=== PATIENT | male | born 1965 | race Two or more races ===

== ENCOUNTER 2021-06-08 08:40 | Outpatient (AMB) | payer BC, SELFPAY ==
[2021-06-08 08:48] VITALS: BP 170/95; PULSE 78; TEMP 36.4; BMI 38.6
--- NOTE | 2021-06-08 08:48 | U.OPVIS1 ---
Intake Vital Signs 06/08/21 08:48 Height 1.68 m Weight 108.579 kg BMI 38.6 BP 170/95 H Blood Pressure Location Left Upper Arm Position Sitting Pulse 78 Pulse Source Monitor Temp 97.5 F Temp Source Temporal Artery Scan Intake Visit Reasons: Uro Uroflow and Bladder Scan Resident Care Manager Required: No Is patient in pain?: No Allergy Allergies No Known Allergies Allergy (Verified 06/08/21 08:49) Office Procedures Uro Bladder Scan and Uro Flow My Supervising Practitioner for this visit is:: Lupis Guevara Bladder Scan and Uro Flow Completed?: Yes Diagnosis: BPH WITH LUTS N40.1 SLOW STREAM R39.12 Uro Level of Care Nursing/Assessment/Reassessment Patient Status: Established Patient Nursing Assessment/Reassessment: Update [facility] data in EMR, Vital Signs and Medication Reconciliation Coordination of Care: Comp Pt/Fam Ed for care Established Patient Point Assignment: 50 Procedure IM Injection: No Transrectal Ultrasound: No
== END 2021-06-08 08:58 | disposition home or self-care (01) ==
LOC: HODURO 08:40
PROVIDERS: PCP Physician Assistant; Visit Provider Urology

== ENCOUNTER → 2024-07-08 | Outpatient (CLI) | payer OTHER, SELFPAY ==
[2024-07-08 12:38] LABS: Prostate Specific Antigen 5.54 ng/mL (0-4.00)
== END | disposition home or self-care (01) ==
LOC: COPL 11:03
PROVIDERS: PCP Physician Assistant; Referring Provider Urology; Visit Provider Urology
DX: N40.1 Benign prostatic hyperplasia with lower urinary tract symptoms (principal)
CPT/HCPCS: 36415; 84153

== ENCOUNTER → 2024-07-15 | Outpatient (BNVA) | payer OTHER, SELFPAY | END | disposition home or self-care (01) | PROVIDERS: PCP Physician Assistant; Referring Provider Physician Assistant; Visit Provider Physician Assistant | DX: N40.0 Benign prostatic hyperplasia without lower urinary tract symptoms (principal); R97.20 Elevated prostate specific antigen [PSA]; I10 Essential (primary) hypertension; I48.91 Unspecified atrial fibrillation; E78.00 Pure hypercholesterolemia, unspecified; Z86.73 Personal history of transient ischemic attack (TIA), and cerebral infarction without residual deficits | CPT/HCPCS: Q3014 ==

== ENCOUNTER 2024-09-17 19:57 | Emergency (ER) | payer OTHER, SELFPAY ==
[2024-09-17 19:58] VITALS: BMI 35.5
[2024-09-17 20:54] VITALS: BP 128/84; PULSE 74; RESP 18; TEMP 37; O2SAT 96
[2024-09-18 00:28] LABS: Collection Type, Urine Catheter; Squamous Epithelial Cell,Urine 0 /hpf (0-5)
[2024-09-18 00:39] LABS: Bilirubin,Urine Negative (Negative); Blood,Urine 3+ (Negative); Glucose, Urine Negative (Negative); Ketones,Urine Negative (Negative); Leukocyte Esterase,Urine Positive (Negative); Nitrite,Urine Positive (Negative); Protein,Urine 2+ (Neg - Trace); RBC,Urine 4627 /hpf (0-3); Specific Gravity,Urine 1.021 (1.001-1.035); Urobilinogen,Urine Negative mg/dL (0.0-1.0); WBC,Urine 378 /hpf (0-5)
[2024-09-18 00:54] LABS: Color,Urine Drk Orange (Lt Yel-Yel)
[2024-09-18 00:55] LABS: Clarity,Urine Turbid (Clear/Hazy)
[2024-09-18] MEDS: cefTRIAXone 1,000 MG, LIDOCAINE 1% 20 ML 2.1 ML IM (02:17)
[2024-09-18 02:28] VITALS: BP 122/76; PULSE 76; RESP 16; TEMP 36.8; O2SAT 98
--- NOTE | 2024-09-18 03:48 | PD.EDMALE ---
ED Male Genitalurinary RME/HPI General Chief complaint: Urogenital-Male Stated complaint: PAINFUL NICOLE PLACEMENT Time Seen by Provider: 09/17/24 21:38 Arrival date/time: 09/17/24 19:57 59M with history of CVA, afib, psych, and HTN presents to ED with pain/irritation from Nicole that was put in a few days due to urinary retention. Patient was at [facility] when this was done. CT was unremarkable according to patient. UA showed some infection and patient was discharged with Keflex, but hasn't picked it up yet. Limitations: no limitations Related Data Home Medications ?Medication ?Instructions ?Recorded ?Confirmed lisinopril 40 mg tablet 40 mg PO QDAY 11/07/17 07/15/24 tamsulosin 0.4 mg capsule 0.4 mg PO QDAY 08/11/21 07/15/24 apixaban 5 mg tablet (Eliquis) 5 mg PO BID 07/16/23 07/15/24 amlodipine 10 mg tablet 5 mg PO Q OTHER DAY 09/12/23 07/15/24 aspirin 81 mg tablet 81 mg PO QDAY 09/12/23 07/15/24 atorvastatin 20 mg tablet 20 mg PO QDAY 09/12/23 07/15/24 bupropion HCl 100 mg tablet,12 hr 100 mg PO QDAY 09/12/23 07/15/24 sustained-release ezetimibe 10 mg tablet 10 mg PO QDAY 09/12/23 07/15/24 lorazepam 0.5 mg tablet 0.5 mg PO QDAY 09/12/23 07/15/24 metoprolol succinate 100 mg 100 mg PO BID 09/12/23 07/15/24 tablet,extended release 24 hr Allergies Allergy/AdvReac Type Severity Reaction Status Date / Time No Known Allergies Allergy Verified 07/15/24 14:37 Review of Systems Review of Systems Systems Reviewed: All systems reviewed, normal except as documented Constitutional Constitutional: Reports system reviewed and no additional complaints, except as documented, Denies fever(s) and Denies headache(s) ENT Ears, Nose, Mouth, and Throat: Denies disequilibrium and Denies headache(s) Cardiovascular Cardiovascular: Reports system reviewed and no additional complaints, except as documented, Denies chest pain and Denies dyspnea Respiratory Respiratory: Reports system reviewed and no additional complaints, except as documented, Denies cough and Denies dyspnea Gastrointestinal Gastrointestinal: Reports system reviewed and no additional complaints, except as documented, Denies abdominal pain, Denies nausea and Denies vomiting Neurologic Neurologic: Reports system reviewed and no additional complaints, except as documented, Denies confusion, Denies disequilibrium and Denies headache(s) Psychiatric Psychiatric: Denies confusion Past Medical History Past Medical History NEUROLOGIC: Positive Neurological Disorders and Cerebrovascular Accident (2018); Negative Seizures CARDIAC: Positive Cardiac Disorders, Atrial Fibrillation, Hypercholesterolemia and Hypertension; Negative Congestive Heart Failure or Valvular Heart Disease RESPIRATORY: Negative Chronic Obstructive Pulmonary Disease (COPD), Asthma or Sleep Apnea GASTROINTESTINAL: Positive Obesity; Negative Gastrointestinal Disorders, Gastrointestinal Bleed, Ulcer or Gastroesophageal Reflux Disease GENITOURINARY: Positive Benign Prostatic Hyperplasia; Negative Genitourinary Disorders or Renal Disease MUSCULOSKELETAL: Negative Musculoskeletal Disorders or Fractures ENT: Positive Cataracts (left eye); Negative Glaucoma ENDOCRINE: Negative Endocrine Disorders, Diabetes Mellitus Type 1, Diabetes Mellitus Type 2, Hyperthyroidism or Hypothyroidism HEMATOLOGIC: Negative Blood Disorders, Anemia, Sickle Cell Disease or Clotting Problems PSYCHO/SOCIAL: Positive Depression and Anxiety OTHER HISTORY: Negative Hospitalization, Falls, Blood Transfusions, Anesthesia Reactions or Cancer Surgical History SURGICAL: Negative Cardiac Surgery, Pacemaker or Ear Surgery Social History SMOKING STATUS: Never smoker SUBSTANCE USE: does not use ED Exam General Limitations: Present no limitations General appearance: Present alert and in no apparent distress Head Head exam: Present atraumatic Eye Eye exam: Present normal appearance, PERRL and EOMI ENT ENT exam: Present normal exam, normal oropharynx and mucous membranes moist Neck Neck exam: Present normal inspection, full ROM and trachea midline Chest Chest inspection: Present normal inspection and symmetric chest wall rise Respiratory Respiratory exam: Present normal lung sounds bilaterally Cardiovascular Cardiovascular exam: Present regular rate, normal rhythm and normal heart sounds Abdominal Exam Abdominal exam: Present soft and normal bowel sounds Extremities Exam Extremities exam: Present normal inspection and full ROM Back Exam Back exam: Present normal inspection and full ROM Neurological Exam Neurological exam: Present alert, oriented X3 and CN II-XII intact Psychiatric Psychiatric exam: Present normal affect and normal mood Skin Skin exam: Present warm, dry, intact and normal color Course Quality Measures none Orders Category Date Time Status Nicole to Leg Bag Routine Care 09/17/24 23:09 Ordered In and Out Catheter X1 Care 09/17/24 23:09 Completed Urinalysis Stat Lab 09/18/24 00:18 Completed Urine Culture Stat Lab 09/18/24 00:18 Received cefTRIAXone [Rocephin] 1,000 mg Med 09/18/24 02:07 Discontinued Lidocaine 1% 20 ml [Xylocaine 1% 20 ML] 2.1 ml IM X1 Vital Signs Vital signs: Vital Signs Temperature 98.6 F 09/17/24 20:54 Pulse Rate 74 09/17/24 20:54 Respiratory Rate 18 09/17/24 20:54 Blood Pressure 128/84 09/17/24 20:54 Pulse Oximetry (%) 96 09/17/24 20:54 Oxygen Delivery Method Room Air 09/17/24 20:54 O2 at 96% on RA and WNLs Urogenital - Male MDM Narrative MDM Narrative:: 59M with history of CVA, afib, psych, and HTN presents to ED with pain/irritation from Nicole that was put in a few days due to urinary retention. Patient was at [facility] when this was done. CT was unremarkable according to patient. UA showed some infection and patient was discharged with Keflex, but hasn't picked it up yet. Physical exam reveals well-appearing male. Patient is afebrile, calm, and alert. Nicole was removed. Void trial was successful, though with some difficulty. Patient would prefer not to have a Nicole replaced. Patient has upcoming urology appt. UA showed blood and WBCs, likely from Nicole placement, but will give IM Rocephin to reinforce the Keflexd patient was prescribed. Patient states he will pickle cutter ABX in the morning. Patient data External records reviewed:: [facility] previous records Clinical information provided by:: patient Social determinants that could affect healthcare access:: mental health Patient has the following chronic illnesses:: CVA, afib, psych, and HTN How is presenting disease/condition affected by chronic disease/condition?: exacerbated by Evaluation data The following diagnostics were reviewed and interpreted by me:: lab results Lab and/or radiology exams considered but not ordered:: ordered Interpretation Summary: above Medications / Prescriptions Medications or Prescriptions considered but not ordered:: ordered Medication administrations:: Medication Administration History Discontinued Medications Ceftriaxone Sodium 1,000 mg/ (Lidocaine HCl 2.1 ml) 0 mg IM X1 ONE Stop: 09/18/24 02:08 Last Admin: 09/18/24 02:17 Dose: 1,000 mg Documented By: CB above Consultations Consultation(s) initiated? (list below): No Diagnosis Urogenital Male Differential Diagnosis: urinary tract infection, priapism, urethritis, epididymitis, genital herpes simplex, prostatitis, acute retention of urine, inguinal hernia and other (Nicole removal) Most likely diagnosis given after review of the tests above:: Nicole removal and UTI Admission Indicated Admission indicated?: not indicated Admission Request Was there a request for admission?: No Disposition Plan Disposition Plan: Discharge Discharge Attestation Discharge Attestation: The patient and all family members were given an opportunity to ask questions and understood the discharge instructions. Discharge instructions specifically effects, indications for sooner follow up or return to the emergency department, and the expected course of current diagnosis. Patient condition: Stable Discharge Plan Plan Patient Disposition: HOME (Self Care) Discharge Disposition comment: Stable Prescriptions/Referrals Prescriptions/Med Rec: No Action tamsulosin 0.4 mg capsule 0.4 mg PO QDAY Eliquis 5 mg tablet 5 mg PO BID lisinopril 40 mg Tablet 40 mg PO QDAY atorvastatin 20 mg Tablet 20 mg PO QDAY metoprolol succinate 100 mg Tablet Extended Release 24 Hr 100 mg PO BID bupropion HCl 100 mg Tablet Sustained-Release 12 Hr 100 mg PO QDAY lorazepam 0.5 mg Tablet 0.5 mg PO QDAY amlodipine 10 mg Tablet 5 mg PO Q OTHER DAY aspirin 81 mg Tablet 81 mg PO QDAY ezetimibe 10 mg Tablet 10 mg PO QDAY Referrals: Nuvia Gutierrez PA-C [Primary Care Provider] - In 1 week Problem List Clinical Impression: Urinary tract infection, Encounter for Nicole catheter removal Patient/Caregiver Discharge Instructions Education Materials: ED Hematuria Additional Instructions: Please follow-up with PCP within 24-48 hours and return immediately if symptoms worsen. Make sure to pickle cutter ABX from pharmacy. Print Language: Kyrgyz Stand Alone Forms: Patient Portal Info Letter BRANDON/CAMILLA Supervising Physician BRANDON/CAMILLA Supervising Physician: Dr. Rivera
== END 2024-09-18 02:30 | disposition home or self-care (01) ==
PROVIDERS: Physician Assistant; Emergency Provider Emergency Medicine; PCP Physician Assistant
DX: Z46.6 Encounter for fitting and adjustment of urinary device (principal); N39.0 Urinary tract infection, site not specified; N40.1 Benign prostatic hyperplasia with lower urinary tract symptoms; R33.8 Other retention of urine
CPT/HCPCS: 81001; 87077; 87086; 87186; 96372; 99283; J0696; J3490

== ENCOUNTER 2024-09-18 07:09 | Emergency (ER) | payer OTHER, SELFPAY ==
[2024-09-18 07:10] VITALS: BMI 35.5
[2024-09-18 07:18] VITALS: BP 143/91; PULSE 77; RESP 18; TEMP 36.6; O2SAT 98; BMI 34.9
--- NOTE | 2024-09-18 07:29 | PD.EDMALE ---
ED Male Genitalurinary RME/HPI General Chief complaint: Urogenital-Male Stated complaint: UNABLE TO VOID, CATHETER REMOVED AT 0100 TODAY Time Seen by Provider: 09/18/24 07:15 Source: patient Arrival date/time: 09/18/24 07:09 59-year-old male with a history of hypertension, hyperlipidemia, BPH, presents to the emergency room with a chief complaint of urinary retention. Patient states he was seen here last night and had his catheter removed. Mode of arrival: ambulatory Limitations: no limitations Related Data Home Medications ?Medication ?Instructions ?Recorded ?Confirmed lisinopril 40 mg tablet 40 mg PO QDAY 11/07/17 07/15/24 tamsulosin 0.4 mg capsule 0.4 mg PO QDAY 08/11/21 07/15/24 apixaban 5 mg tablet (Eliquis) 5 mg PO BID 07/16/23 07/15/24 amlodipine 10 mg tablet 5 mg PO Q OTHER DAY 09/12/23 07/15/24 aspirin 81 mg tablet 81 mg PO QDAY 09/12/23 07/15/24 atorvastatin 20 mg tablet 20 mg PO QDAY 09/12/23 07/15/24 bupropion HCl 100 mg tablet,12 hr 100 mg PO QDAY 09/12/23 07/15/24 sustained-release ezetimibe 10 mg tablet 10 mg PO QDAY 09/12/23 07/15/24 lorazepam 0.5 mg tablet 0.5 mg PO QDAY 09/12/23 07/15/24 metoprolol succinate 100 mg 100 mg PO BID 09/12/23 07/15/24 tablet,extended release 24 hr Allergies Allergy/AdvReac Type Severity Reaction Status Date / Time No Known Allergies Allergy Verified 09/18/24 07:11 Review of Systems Review of Systems Systems Reviewed: All systems reviewed, normal except as documented Constitutional Constitutional: Reports system reviewed and no additional complaints, except as documented, Denies fatigue, Denies fever(s), Denies headache(s) and Denies weakness Eyes Eyes: Reports system reviewed and no additional complaints, except as documented, Denies blurry vision and Denies change in vision ENT Ears, Nose, Mouth, and Throat: Reports system reviewed and no additional complaints, except as documented, Denies otalgia, Denies headache(s), Denies nasal congestion, Denies throat swelling and Denies vertigo Cardiovascular Cardiovascular: Reports system reviewed and no additional complaints, except as documented, Denies chest pain, Denies dyspnea and Denies dyspnea on exertion Respiratory Respiratory: Reports system reviewed and no additional complaints, except as documented, Denies chest congestion, Denies cough, Denies dyspnea, Denies dyspnea on exertion and Denies wheezing Gastrointestinal Gastrointestinal: Reports system reviewed and no additional complaints, except as documented, Denies abdominal pain, Denies cramping, Denies nausea and Denies vomiting Genitourinary Genitourinary: Reports system reviewed and no additional complaints, except as documented, Denies dysuria, Denies hematuria and Reports oliguria Musculoskeletal Musculoskeletal: Reports system reviewed and no additional complaints, except as documented and Denies back pain Integumentary/Breasts Skin/Breast: Reports system reviewed and no additional complaints, except as documented and Denies wounds Neurologic Neurologic: Reports system reviewed and no additional complaints, except as documented, Denies confusion, Denies headache(s), Denies lack of coordination, Denies vertigo and Denies weakness Psychiatric Psychiatric: Reports system reviewed and no additional complaints, except as documented, Denies anxiety, Denies confusion, Denies depression, Denies paranoia, Denies suicidal ideation and Denies tactile hallucinations Endocrine Endocrine: Reports system reviewed and no additional complaints, except as documented and Denies fatigue Hematologic/Lymphatic Hematologic/Lymphatic: Reports system reviewed and no additional complaints, except as documented and Denies lymphadenopathy Allergic/Immunologic Allergic/Immunologic: Reports system reviewed and no additional complaints, except as documented, Denies throat swelling, Denies urticaria and Denies wheezing Past Medical History Past Medical History NEUROLOGIC: Positive Neurological Disorders and Cerebrovascular Accident (2018); Negative Seizures CARDIAC: Positive Cardiac Disorders, Atrial Fibrillation, Hypercholesterolemia and Hypertension; Negative Congestive Heart Failure or Valvular Heart Disease RESPIRATORY: Negative Chronic Obstructive Pulmonary Disease (COPD), Asthma or Sleep Apnea GASTROINTESTINAL: Positive Obesity; Negative Gastrointestinal Disorders, Gastrointestinal Bleed, Ulcer or Gastroesophageal Reflux Disease GENITOURINARY: Positive Benign Prostatic Hyperplasia; Negative Genitourinary Disorders or Renal Disease MUSCULOSKELETAL: Negative Musculoskeletal Disorders or Fractures ENT: Positive Cataracts (left eye); Negative Glaucoma ENDOCRINE: Negative Endocrine Disorders, Diabetes Mellitus Type 1, Diabetes Mellitus Type 2, Hyperthyroidism or Hypothyroidism HEMATOLOGIC: Negative Blood Disorders, Anemia, Sickle Cell Disease or Clotting Problems PSYCHO/SOCIAL: Positive Depression and Anxiety OTHER HISTORY: Negative Hospitalization, Falls, Blood Transfusions, Anesthesia Reactions or Cancer Surgical History SURGICAL: Negative Cardiac Surgery, Pacemaker or Ear Surgery Social History SMOKING STATUS: Never smoker SUBSTANCE USE: does not use ED Exam General Limitations: Present no limitations General appearance: Present alert and in no apparent distress Head Head exam: Present atraumatic Eye Eye exam: Present normal appearance, PERRL and EOMI ENT ENT exam: Present normal exam, normal oropharynx and mucous membranes moist Neck Neck exam: Present normal inspection, full ROM and trachea midline Chest Chest inspection: Present normal inspection and symmetric chest wall rise Respiratory Respiratory exam: Present normal lung sounds bilaterally Cardiovascular Cardiovascular exam: Present regular rate, normal rhythm and normal heart sounds Abdominal Exam Abdominal exam: Present soft and normal bowel sounds Extremities Exam Extremities exam: Present normal inspection and full ROM Back Exam Back exam: Present normal inspection and full ROM Neurological Exam Neurological exam: Present alert, oriented X3 and CN II-XII intact Psychiatric Psychiatric exam: Present normal affect and normal mood Skin Skin exam: Present warm, dry, intact and normal color Course Quality Measures none Orders Category Date Time Status Philippe [Urinary Catheter] QS Care 09/18/24 07:27 Active Philippe to Leg Bag Routine Care 09/18/24 07:27 Ordered Vital Signs Vital signs: Vital Signs Temperature 97.9 F 09/18/24 07:18 Pulse Rate 77 09/18/24 07:18 Respiratory Rate 18 09/18/24 07:18 Blood Pressure 143/91 H 09/18/24 07:18 Pulse Oximetry (%) 98 09/18/24 07:18 Oxygen Delivery Method Room Air 09/18/24 07:18 Urogenital - Male MDM Narrative MDM Narrative:: 59-year-old male with a history of hypertension, hyperlipidemia, BPH, presents to the emergency room with a chief complaint of urinary retention. Patient states he was seen here last night and had his catheter removed. Patient is hemodynamically stable and in no apparent distress. Patient was seen here last night and had his Philippe catheter removed. The patient was able to urinate after discharged and decided to not get another Philippe catheter placed. This morning the patient noticed a decreased urine output and dribbling when he was urinating. This progressed throughout the day causing abdominal distention and pain. Patient states he has a appointment with his urologist this upcoming Sunday for his problems with his enlarged prostate. A Philippe catheter was placed then the patient was discharged patient was educated to keep the Philippe catheter in place and to be seen and cleared by his urologist Patient was discharged and educated to follow-up with primary care provider in the next 24 to 48 hours and return to the emergency room for any evidence of worsening signs or symptoms Patient data External records reviewed:: [facility] previous records Clinical information provided by:: patient Social determinants that could affect healthcare access:: none Patient has the following chronic illnesses:: BPH, hypertension, hyperlipidemia How is presenting disease/condition affected by chronic disease/condition?: caused by Evaluation data The following diagnostics were reviewed and interpreted by me:: lab results and radiology exam(s) Lab and/or radiology exams considered but not ordered:: Labs and radiology results considered but not ordered Interpretation Summary: N/A Medications / Prescriptions Medications or Prescriptions considered but not ordered:: No medication given Medication administrations:: No medication given Consultations Consultation(s) initiated? (list below): No Diagnosis Urogenital Male Differential Diagnosis: urinary tract infection, urethritis, prostatitis and acute retention of urine Most likely diagnosis given after review of the tests above:: Acute retention of urine Admission Indicated Admission indicated?: not indicated Admission Request Was there a request for admission?: No Disposition Plan Disposition Plan: Discharge Discharge Attestation Discharge Attestation: The patient and all family members were given an opportunity to ask questions and understood the discharge instructions. Discharge instructions specifically effects, indications for sooner follow up or return to the emergency department, and the expected course of current diagnosis. Patient condition: Stable Discharge Plan Plan Patient Disposition: HOME (Self Care) Discharge Disposition comment: Stable Prescriptions/Referrals Prescriptions/Med Rec: No Action tamsulosin 0.4 mg capsule 0.4 mg PO QDAY Eliquis 5 mg tablet 5 mg PO BID lisinopril 40 mg Tablet 40 mg PO QDAY atorvastatin 20 mg Tablet 20 mg PO QDAY metoprolol succinate 100 mg Tablet Extended Release 24 Hr 100 mg PO BID bupropion HCl 100 mg Tablet Sustained-Release 12 Hr 100 mg PO QDAY lorazepam 0.5 mg Tablet 0.5 mg PO QDAY amlodipine 10 mg Tablet 5 mg PO Q OTHER DAY aspirin 81 mg Tablet 81 mg PO QDAY ezetimibe 10 mg Tablet 10 mg PO QDAY Problem List Clinical Impression: Acute retention of urine Patient/Caregiver Discharge Instructions Education Materials: ED Urinary Retention, Male Additional Instructions: Please follow-up with your primary care provider in the next 24 to 48 hours Please keep your appointment with your urologist this Sunday. For any evidence of worsening signs or symptoms return to the emergency room immediately Print Language: Italian Stand Alone Forms: Jeannette Award Info., Work/School Release, Patient Portal Info Letter PA/DELIVERY DIRECTOR Supervising Physician PA/DELIVERY DIRECTOR Supervising Physician: Dr. YOO
== END 2024-09-18 08:19 | disposition home or self-care (01) ==
LOC: SERX 08:07
PROVIDERS: Emergency Provider Emergency Medicine; PCP Physician Assistant
DX: N40.1 Benign prostatic hyperplasia with lower urinary tract symptoms (principal); R33.8 Other retention of urine; I10 Essential (primary) hypertension; E78.5 Hyperlipidemia, unspecified
CPT/HCPCS: 99283

== ENCOUNTER → 2024-09-19 | Outpatient (CLI) | payer OTHER, SELFPAY ==
[2024-09-19 13:02] LABS: Prostate Specific Antigen 8.97 ng/mL (0-4.00)
== END | disposition home or self-care (01) ==
LOC: COPL 12:21
PROVIDERS: PCP Physician Assistant; Referring Provider Physician Assistant; Visit Provider Physician Assistant
DX: R97.20 Elevated prostate specific antigen [PSA] (principal)
CPT/HCPCS: 36415; 84153; 84480

== ENCOUNTER 2024-09-20 16:06 | Emergency (ER) | payer OTHER, SELFPAY ==
[2024-09-20 16:35] VITALS: BP 137/88; PULSE 74; RESP 16; TEMP 36.8; O2SAT 97; BMI 34.7
--- NOTE | 2024-09-20 17:10 | PD.EDMALE ---
ED Male Genitalurinary RME/HPI General Chief complaint: Urogenital-Male Stated complaint: Blood in urine (gonsalves) Time Seen by Provider: 09/20/24 16:13 Arrival date/time: 09/20/24 16:06 59-year-old male with a history of hypertension, hyperlipidemia, BPH, presents to the emergency room with a chief complaint of urinary retention and is s/p Gonsalves catheter placement. Patient was seen here 2 days ago and had it replaced. Patient states he was working outside and does not know if he accidentally tugged on it. Patient has some blood in his urine today Related Data Home Medications ?Medication ?Instructions ?Recorded ?Confirmed lisinopril 40 mg tablet 40 mg PO QDAY 11/07/17 09/23/24 amlodipine 10 mg tablet 5 mg PO Q OTHER DAY 09/12/23 09/23/24 aspirin 81 mg tablet 81 mg PO QDAY 09/12/23 09/23/24 atorvastatin 20 mg tablet 20 mg PO QDAY 09/12/23 09/23/24 bupropion HCl 100 mg tablet,12 hr 100 mg PO QDAY 09/12/23 09/23/24 sustained-release ezetimibe 10 mg tablet 10 mg PO QDAY 09/12/23 09/23/24 lorazepam 0.5 mg tablet 0.5 mg PO QDAY 09/12/23 09/23/24 metoprolol succinate 100 mg 100 mg PO BID 09/12/23 09/23/24 tablet,extended release 24 hr finasteride 5 mg tablet 5 mg PO QDAY 09/23/24 09/23/24 tamsulosin 0.4 mg capsule 0.8 mg PO QDAY 09/23/24 09/23/24 Allergies Allergy/AdvReac Type Severity Reaction Status Date / Time No Known Allergies Allergy Verified 09/23/24 13:29 Review of Systems Review of Systems Systems Reviewed: All systems reviewed, normal except as documented Past Medical History Past Medical History NEUROLOGIC: Positive Neurological Disorders and Cerebrovascular Accident (2018); Negative Seizures CARDIAC: Positive Cardiac Disorders, Atrial Fibrillation, Hypercholesterolemia and Hypertension; Negative Congestive Heart Failure or Valvular Heart Disease RESPIRATORY: Negative Chronic Obstructive Pulmonary Disease (COPD), Asthma or Sleep Apnea GASTROINTESTINAL: Positive Obesity; Negative Gastrointestinal Disorders, Gastrointestinal Bleed, Ulcer or Gastroesophageal Reflux Disease GENITOURINARY: Positive Benign Prostatic Hyperplasia; Negative Genitourinary Disorders or Renal Disease MUSCULOSKELETAL: Negative Musculoskeletal Disorders or Fractures ENT: Positive Cataracts (left eye); Negative Glaucoma ENDOCRINE: Negative Endocrine Disorders, Diabetes Mellitus Type 1, Diabetes Mellitus Type 2, Hyperthyroidism or Hypothyroidism HEMATOLOGIC: Negative Blood Disorders, Anemia, Sickle Cell Disease or Clotting Problems PSYCHO/SOCIAL: Positive Depression and Anxiety OTHER HISTORY: Negative Hospitalization, Falls, Blood Transfusions, Anesthesia Reactions or Cancer Surgical History SURGICAL: Negative Cardiac Surgery, Pacemaker or Ear Surgery Social History SMOKING STATUS: Never smoker SUBSTANCE USE: does not use ED Exam Narrative Physical exam: VITAL SIGNS: Reviewed. GENERAL APPEARANCE: Alert and interactive, follows commands, no acute distress HEAD AND FACE: Non-traumatic. ENT: PERRL, pink conjunctivitis, eyelid no trauma, Mucous membrane moist. NECK: Supple, nontender, no nuchal rigidity. CHEST: No tenderness, no crepitus, no paradoxical movement, no retractions. LUNGS: breathing even and unlabored HEART: Regular rate, cap refill less than 2 seconds ABDOMEN: Soft, nondistended, no guarding, nontender, no rebound, no masses, NEUROLOGICAL: Gross motor function intact sensory function intact, Appropriate for age. MUSCULOSKELETAL: low back nontender, full range of motion. EXTREMITIES: No redness no swelling no skin breakdown on bilateral foot and leg. Distal neurovascular status intact bilateral foot SKIN: Color pink, dry, no rash, no lacerations, no abrasions, no contusions. Course Quality Measures none Vital Signs Vital signs: Vital Signs Temperature 98.2 F 09/20/24 16:35 Pulse Rate 74 09/20/24 16:35 Respiratory Rate 16 09/20/24 16:35 Blood Pressure 137/88 H 09/20/24 16:35 Pulse Oximetry (%) 97 09/20/24 16:35 Oxygen Delivery Method Room Air 09/20/24 16:35 Urogenital - Male MDM Narrative MDM Narrative:: Flush Gonsalves catheter with 500 cc of normal saline. Patient tolerated well. Patient's urine did clear up some. Catheter appears to be draining well. I spoke to patient at length that if he starts having abdominal pressure urinary retention his catheter is not draining or his urine is getting darker and not improving to come back to the emergency room. I talked at length with patient about changing Gonsalves catheter and possible complication and having it start bleeding more. Patient data External records reviewed:: [facility] previous records Clinical information provided by:: patient Social determinants that could affect healthcare access:: none Patient has the following chronic illnesses:: see hpi How is presenting disease/condition affected by chronic disease/condition?: uneffected by Evaluation data The following diagnostics were reviewed and interpreted by me:: lab results Lab and/or radiology exams considered but not ordered:: none Interpretation Summary: see note Medications / Prescriptions Medications or Prescriptions considered but not ordered:: none Medication administrations:: see mar Consultations Consultation(s) initiated? (list below): No Diagnosis Urogenital Male Differential Diagnosis: urinary tract infection, prostatitis, acute retention of urine and other (kidney stones ) Most likely diagnosis given after review of the tests above:: uti, urinary retention,hematuia secondary to trauma Admission Indicated Admission indicated?: not indicated Admission Request Was there a request for admission?: No Disposition Plan Disposition Plan: Discharge Discharge Attestation Discharge Attestation: The patient and all family members were given an opportunity to ask questions and understood the discharge instructions. Discharge instructions specifically effects, indications for sooner follow up or return to the emergency department, and the expected course of current diagnosis. Patient condition: Stable Discharge Plan Plan Patient Disposition: HOME (Self Care) Patient condition on transfer: Stable Prescriptions/Referrals Prescriptions/Med Rec: No Action tamsulosin 0.4 mg capsule 0.8 mg PO QDAY finasteride 5 mg tablet 5 mg PO QDAY lisinopril 40 mg Tablet 40 mg PO QDAY atorvastatin 20 mg Tablet 20 mg PO QDAY metoprolol succinate 100 mg Tablet Extended Release 24 Hr 100 mg PO BID bupropion HCl 100 mg Tablet Sustained-Release 12 Hr 100 mg PO QDAY lorazepam 0.5 mg Tablet 0.5 mg PO QDAY amlodipine 10 mg Tablet 5 mg PO Q OTHER DAY aspirin 81 mg Tablet 81 mg PO QDAY ezetimibe 10 mg Tablet 10 mg PO QDAY Problem List Clinical Impression: Complication of Gonsalves catheter, Chronic indwelling Gonsalves catheter Patient/Caregiver Discharge Instructions Discharge Activity: activity as tolerated Education Materials: ED Gonsalves Catheter, Care Additional Instructions: If you start noticing pain or pressure in lower abdomen and catheter not draining these come back to the emergency room. At that time we will change her catheter. Follow-up with primary provider in 1 to 2 days. Continue current antibiotics. Print Language: Albanian Stand Alone Forms: Jeannette Award Info., Patient Portal Info Letter PA/PARK SUPERINTENDENT Supervising Physician PA/PARK SUPERINTENDENT Supervising Physician: ashley
--- NOTE | 2024-09-20 18:07 | PC.NURSE ---
PT COMING IN WITH NICOLE CATHETER WITH C/O BLOOD IN URINE AND NOT DRAINING RIGHT. PER ANUP Zeng NP ORDERS, PT'S NICOLE MANUALLY IRRIGATED USING WITH 500CC OF NORMAL SALINE; 550CC WAS IRRIGANT OUTPUT. PT'S INITIAL URINE OUTPUT DARK RED; AFTER IRRIGATING, PT'S UO TURNED LIGHT RED/PINK IN NATURE. PT'S LEG BAG CHANGED WITH NEW LEG BAG. ANUP Zeng BIZTALK SOFTWARE DEVELOPER MADE AWARE.
== END 2024-09-20 19:00 | disposition home or self-care (01) ==
LOC: SERX 18:26
PROVIDERS: Emergency Provider Emergency Medicine
DX: T83.83XA Hemorrhage due to genitourinary prosthetic devices, implants and grafts, initial encounter (principal); Y84.6 Urinary catheterization as the cause of abnormal reaction of the patient, or of later complication, without mention of misadventure at the time of the procedure; N40.1 Benign prostatic hyperplasia with lower urinary tract symptoms; R33.8 Other retention of urine
CPT/HCPCS: 99282

== ENCOUNTER → 2024-09-23 | Outpatient (CLI) | payer OTHER, SELFPAY ==
[2024-09-23 09:46] LABS: Basophils % (Auto) 0 % (0-2.5); Eosinophils # (Auto) 0.1 Thou/mm3 (0.0-0.5); Eosinophils % (Auto) 2 % (0-10); Hemoglobin 15.6 g/dL (13.5-16.0); Immature Granulocytes % (Auto) 0 % (0-0); Immature Granulocytes Auto 0.03 Thou/mm3 (0.00-0.00); Lymphocytes # (Auto) 1.2 Thou/mm3 (1.0-4.8); Lymphocytes % (Auto) 17 % (10-50); Mean Corpuscular HGB Conc 34.7 g/dl (31.0-37.0); Mean Corpuscular Hemoglobin 29.8 pg (25.0-35.0); Mean Corpuscular Volume 86 fL (80-100); Monocytes # (Auto) 0.7 Thou/mm3 (0.0-0.8); Monocytes % (Auto) 11 % (0-12); Neutrophils # (Auto) 4.8 Thou/mm3 (1.8-7.7); Neutrophils % (Auto) 70 % (37-80); Nucleated Red Blood Cell % 0 /100 WBC (0); Platelet Count 225 Thou/mm3 (140-440); RDW Standard Deviation 38.5 fL (35.1-43.9); Red Blood Count 5.23 Miln/mm3 (4.50-5.90); White Blood Count 6.9 Thou/mm3 (3.8-10.6)
[2024-09-23 10:23] LABS: Glucose Estimated Average 108 mg/dL (80-131); Hemoglobin A1C 5.4 % Hgb (4.8-6.0)
[2024-09-23 11:12] LABS: Alanine Aminotransferase 31 U/L (10-49); Albumin, Serum 4.2 gm/dL (3.5-5.0); Albumin/Globulin Ratio 1.6 (1.2-2.2); Alkaline Phosphatase 71 U/L (46-116); Anion Gap 8 (7-16); Aspartate Amino Transferase 24 U/L (0-34); BUN/Creatinine Ratio 10 Ratio (12-20); Bilirubin,Total 0.8 mg/dL (0.3-1.2); Blood Urea Nitrogen 9 mg/dL (9-23); Calcium 8.9 mg/dL (8.3-10.6); Calcium (Corrected) 8.9 mg/dL (8.5-10.1); Carbon Dioxide 24.6 mMol/L (20.0-31.0); Cardiac Risk Estimate 2.4 RATIO (4.0-6.7); Chloride 106 mMol/L (98-107); Cholesterol 92 mg/dL (132-200); Creatinine (Component) 0.9 mg/dL (0.6-1.3); Free T4 (Free Thyroxine) 1.49 ng/dL (0.89-1.76); Globulin 2.7 gm/dL (2.3-3.5); Glucose 112 mg/dL (74-106); HDL Cholesterol 39 mg/dL (40-60); LDL Cholesterol,Calculated 40 mg/dL (0-130); Osmolality,Calculated 277 (275-295); Potassium 4.3 mMol/L (3.4-5.1); Sodium 139 mMol/L (136-145); Thyroid Stimulating Hormone 1.85 uIU/mL (0.55-4.78); Total Protein 6.9 gm/dL (5.7-8.2); Triglycerides 66 mg/dL (30-150); eGFR > 60 See Note
== END | disposition home or self-care (01) ==
LOC: COPL 08:13
PROVIDERS: PCP Physician Assistant; Referring Provider Internal Medicine Cardiovascular Disease; Visit Provider Internal Medicine Cardiovascular Disease
DX: E66.9 Obesity, unspecified (principal); E78.5 Hyperlipidemia, unspecified; I10 Essential (primary) hypertension
CPT/HCPCS: 36415; 80053; 80061; 83036; 83735; 84439; 84443; 85025

== ENCOUNTER → 2024-09-23 | Outpatient (BNVA) | payer OTHER, SELFPAY | END | disposition home or self-care (01) | PROVIDERS: PCP Urology; Referring Provider Urology; Visit Provider Urology | DX: N40.1 Benign prostatic hyperplasia with lower urinary tract symptoms (principal); R33.8 Other retention of urine; R97.20 Elevated prostate specific antigen [PSA]; N43.41 Spermatocele of epididymis, single; Z46.6 Encounter for fitting and adjustment of urinary device; I10 Essential (primary) hypertension; I48.91 Unspecified atrial fibrillation; E66.9 Obesity, unspecified; Z68.36 Body mass index [BMI] 36.0-36.9, adult; E78.00 Pure hypercholesterolemia, unspecified | CPT/HCPCS: 96372; 99212; J1580; G0463 ==

== ENCOUNTER → 2024-10-06 | Outpatient (CLI) | payer OTHER, SELFPAY | END | disposition home or self-care (01) | LOC: COPL 16:50 | PROVIDERS: Referring Provider Urology; Visit Provider Urology | DX: N39.0 Urinary tract infection, site not specified (principal) | CPT/HCPCS: 87077; 87086; 87186 ==

== ENCOUNTER 2024-10-31 14:16 | Emergency (ER) | payer OTHER, SELFPAY ==
--- NOTE | 2024-10-31 14:22 | EKG_ITS ---
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
[2024-10-31 14:38] VITALS: BP 120/82; PULSE 87; RESP 17; TEMP 36.9; O2SAT 97
[2024-10-31 14:40] VITALS: BMI 34.3
--- NOTE | 2024-10-31 14:45 | PD.EDARRY ---
ED Arrhythmia Palp. RME/HPI General Chief Complaint: Arrhythmia/Palpitations Stated Complaint: A-fib, lightheaded Time Seen by Provider: 10/31/24 14:27 Source: patient Arrival date/time: 10/31/24 14:16 59-year-old male with a history of atrial fibrillation on Eliquis presents to the emergency room with a chief complaint of weakness and lightheadedness x 2 days. Mode of arrival: ambulatory Limitations: no limitations Related Data Home Medications ?Medication ?Instructions ?Recorded ?Confirmed lisinopril 40 mg tablet 40 mg PO QDAY 11/07/17 10/31/24 amlodipine 10 mg tablet 5 mg PO Q OTHER DAY 09/12/23 10/31/24 aspirin 81 mg tablet 81 mg PO QDAY 09/12/23 10/31/24 atorvastatin 20 mg tablet 20 mg PO QDAY 09/12/23 10/31/24 bupropion HCl 100 mg tablet,12 hr 100 mg PO QDAY 09/12/23 10/31/24 sustained-release ezetimibe 10 mg tablet 10 mg PO QDAY 09/12/23 10/31/24 lorazepam 0.5 mg tablet 0.5 mg PO QDAY 09/12/23 10/31/24 metoprolol succinate 100 mg 100 mg PO BID 09/12/23 10/31/24 tablet,extended release 24 hr finasteride 5 mg tablet 5 mg PO QDAY 09/23/24 10/31/24 tamsulosin 0.4 mg capsule 0.8 mg PO QDAY 09/23/24 10/31/24 apixaban 5 mg tablet (Eliquis) 5 mg PO Q12H 10/31/24 10/31/24 Previous Rx's ?Medication ?Instructions ?Recorded nitrofurantoin 100 mg PO Q12H 5 days #10 caps 10/31/24 monohydrate/macrocrystals 100 mg capsule (Macrobid) Allergies Allergy/AdvReac Type Severity Reaction Status Date / Time No Known Allergies Allergy Verified 10/31/24 14:20 Review of Systems Review of Systems Systems Reviewed: All systems reviewed, normal except as documented Constitutional Constitutional: Reports system reviewed and no additional complaints, except as documented, Denies fatigue, Denies fever(s), Denies headache(s) and Denies weakness Eyes Eyes: Reports system reviewed and no additional complaints, except as documented, Denies blurry vision and Denies change in vision ENT Ears, Nose, Mouth, and Throat: Reports system reviewed and no additional complaints, except as documented, Denies otalgia, Denies headache(s), Denies nasal congestion, Denies throat swelling and Denies vertigo Cardiovascular Cardiovascular: Reports system reviewed and no additional complaints, except as documented, Reports chest pain, Reports chest pain with activity, Denies dyspnea, Denies dyspnea on exertion and Reports irregular heart rhythm Respiratory Respiratory: Reports system reviewed and no additional complaints, except as documented, Denies chest congestion, Denies cough, Denies dyspnea, Denies dyspnea on exertion and Denies wheezing Gastrointestinal Gastrointestinal: Reports system reviewed and no additional complaints, except as documented, Denies abdominal pain, Denies cramping, Denies nausea and Denies vomiting Genitourinary Genitourinary: Reports system reviewed and no additional complaints, except as documented, Denies dysuria and Denies hematuria Musculoskeletal Musculoskeletal: Reports system reviewed and no additional complaints, except as documented and Denies back pain Integumentary/Breasts Skin/Breast: Reports system reviewed and no additional complaints, except as documented and Denies wounds Neurologic Neurologic: Reports system reviewed and no additional complaints, except as documented, Denies confusion, Denies headache(s), Denies lack of coordination, Denies vertigo and Denies weakness Psychiatric Psychiatric: Reports system reviewed and no additional complaints, except as documented, Denies anxiety, Denies confusion, Denies depression, Denies paranoia, Denies suicidal ideation and Denies tactile hallucinations Endocrine Endocrine: Reports system reviewed and no additional complaints, except as documented and Denies fatigue Hematologic/Lymphatic Hematologic/Lymphatic: Reports system reviewed and no additional complaints, except as documented and Denies lymphadenopathy Allergic/Immunologic Allergic/Immunologic: Reports system reviewed and no additional complaints, except as documented, Denies throat swelling, Denies urticaria and Denies wheezing Past Medical History Past Medical History NEUROLOGIC: Positive Neurological Disorders and Cerebrovascular Accident (2018); Negative Seizures CARDIAC: Positive Cardiac Disorders, Atrial Fibrillation, Hypercholesterolemia and Hypertension; Negative Congestive Heart Failure or Valvular Heart Disease RESPIRATORY: Negative Chronic Obstructive Pulmonary Disease (COPD), Asthma or Sleep Apnea GASTROINTESTINAL: Positive Obesity; Negative Gastrointestinal Disorders, Gastrointestinal Bleed, Ulcer or Gastroesophageal Reflux Disease GENITOURINARY: Positive Benign Prostatic Hyperplasia; Negative Genitourinary Disorders or Renal Disease MUSCULOSKELETAL: Negative Musculoskeletal Disorders or Fractures ENT: Positive Cataracts (left eye); Negative Glaucoma ENDOCRINE: Negative Endocrine Disorders, Diabetes Mellitus Type 1, Diabetes Mellitus Type 2, Hyperthyroidism or Hypothyroidism HEMATOLOGIC: Negative Blood Disorders, Anemia, Sickle Cell Disease or Clotting Problems PSYCHO/SOCIAL: Positive Depression and Anxiety OTHER HISTORY: Negative Hospitalization, Falls, Blood Transfusions, Anesthesia Reactions or Cancer Surgical History SURGICAL: Negative Cardiac Surgery, Pacemaker or Ear Surgery Social History SMOKING STATUS: Never smoker SUBSTANCE USE: does not use ED Exam General Limitations: Present no limitations General appearance: Present alert and in no apparent distress Head Head exam: Present atraumatic Eye Eye exam: Present normal appearance, PERRL and EOMI ENT ENT exam: Present normal exam, normal oropharynx and mucous membranes moist Neck Neck exam: Present normal inspection, full ROM and trachea midline Chest Chest inspection: Present normal inspection and symmetric chest wall rise Respiratory Respiratory exam: Present normal lung sounds bilaterally Cardiovascular Cardiovascular exam: Present regular rate, normal rhythm, normal heart sounds, +S1 and +S2; Absent bradycardia, tachycardia, irregular rhythm, systolic murmur or diastolic murmur Abdominal Exam Abdominal exam: Present soft and normal bowel sounds Extremities Exam Extremities exam: Present normal inspection and full ROM Back Exam Back exam: Present normal inspection and full ROM Neurological Exam Neurological exam: Present alert, oriented X3 and CN II-XII intact Psychiatric Psychiatric exam: Present normal affect and normal mood Skin Skin exam: Present warm, dry, intact and normal color Course Quality Measures none Orders Category Date Time Status EKG (ED ONLY) *Do not use* NOW Care 10/31/24 14:22 Completed EKG (ED Only) Stat Exams 10/31/24 14:22 Draft B-Type Natriuretic Peptide Stat Lab 10/31/24 14:44 Ordered CBC Stat Lab 10/31/24 14:44 Ordered Comprehensive Metabolic Panel Stat Lab 10/31/24 14:44 Ordered Drug Screen,Urine Stat Lab 10/31/24 14:44 Ordered Magnesium Stat Lab 10/31/24 14:44 Ordered Partial Thromboplastin Time Stat Lab 10/31/24 14:44 Ordered Prothrombin Time with INR Stat Lab 10/31/24 14:44 Ordered Troponin I Stat Lab 10/31/24 14:44 Ordered Urinalysis Stat Lab 10/31/24 14:44 Ordered Vital Signs Vital signs: Vital Signs Temperature 98.5 F 10/31/24 14:38 Pulse Rate 87 10/31/24 14:38 Respiratory Rate 17 10/31/24 14:38 Blood Pressure 120/82 10/31/24 14:38 Pulse Oximetry (%) 97 10/31/24 14:38 Oxygen Delivery Method Room Air 10/31/24 14:38 PROCEDURES: EKG Interpretation #1: Date of EK10/31/24 Rate: 87 Interpretation: Reviewed by me EKG Impression: Normal sinus rhythm Arrhythmia/Palpitations MDM Narrative MDM Narrative:: 59-year-old male with a history of atrial fibrillation on Eliquis presents to the emergency room with a chief complaint of weakness and lightheadedness x 2 days. Patient is hemodynamically stable and in no apparent distress. Patient is not tachycardic not tachypneic and is afebrile Physical examination shows clear bilateral lung sounds there is no wheezing stridor or any abnormal breath sounds. The patient has a strong rhythm. S1 and S2 noted EKG shows atrial fibrillation at [address] deviation. The patient is currently taking Eliquis for this and has a scheduled appointment with lead level designer next week CBC CMP were all within normal limits troponin negative Patient was discharged and educated to follow-up with primary care provider in the next 24 to 48 hours and return to the emergency room for any evidence of worsening signs or symptoms Patient data External records reviewed:: [facility] previous records Clinical information provided by:: patient Social determinants that could affect healthcare access:: none Patient has the following chronic illnesses:: Atrial fibrillation How is presenting disease/condition affected by chronic disease/condition?: exacerbated by Evaluation data The following diagnostics were reviewed and interpreted by me:: lab results and radiology exam(s) Lab and/or radiology exams considered but not ordered:: Labs and radiology exams considered and ordered Interpretation Summary: N/A Medications / Prescriptions Medications or Prescriptions considered but not ordered:: Medication given Medication administrations:: Medication given Consultations Consultation(s) initiated? (list below): No Diagnosis Differential diagnosis arrhythmia/palpitations: palpitations, artial fibrillation and artial flutter Most likely diagnosis given after review of the tests above:: Atrial fibrillation Admission Indicated Admission indicated?: not indicated Admission Request Was there a request for admission?: No Disposition Plan Disposition Plan: Discharge Discharge Attestation Discharge Attestation: The patient and all family members were given an opportunity to ask questions and understood the discharge instructions. Discharge instructions specifically effects, indications for sooner follow up or return to the emergency department, and the expected course of current diagnosis. Patient condition: Stable Discharge Plan Plan Patient Disposition: HOME (Self Care) Discharge Disposition comment: Stable Prescriptions/Referrals Prescriptions/Med Rec: New nitrofurantoin monohyd/m-cryst [Macrobid] 100 mg capsule 100 mg PO Q12H 5 Days Qty: 10 0RF Rx Instructions: must administer with a meal/food No Action tamsulosin 0.4 mg capsule 0.8 mg PO QDAY Eliquis 5 mg tablet 5 mg PO Q12H finasteride 5 mg tablet 5 mg PO QDAY lisinopril 40 mg Tablet 40 mg PO QDAY atorvastatin 20 mg Tablet 20 mg PO QDAY metoprolol succinate 100 mg Tablet Extended Release 24 Hr 100 mg PO BID bupropion HCl 100 mg Tablet Sustained-Release 12 Hr 100 mg PO QDAY lorazepam 0.5 mg Tablet 0.5 mg PO QDAY amlodipine 10 mg Tablet 5 mg PO Q OTHER DAY aspirin 81 mg Tablet 81 mg PO QDAY ezetimibe 10 mg Tablet 10 mg PO QDAY Referrals: Nuvia Gutierrez PA-C [Primary Care Provider] - In 1 week Problem List Clinical Impression: Atrial fibrillation, Urinary tract infection Patient/Caregiver Discharge Instructions Education Materials: ED Atrial Fibrillation, ED Bladder Infection, Male (Adult) Additional Instructions: Please follow-up with your primary care provider in the next 24 to 48 hours. Please continue to take your Eliquis to help you with your atrial fibrillation. Please keep your appointment with your lead level designer The urinary tract infection was found in your urine sample. Antibiotics are sent to your pharmacy please pick them up and take them as indicated For any evidence of worsening signs or symptoms return to the emergency room Print Language: Mauritanian Stand Alone Forms: Jeannette Award Info., Patient Portal Info Letter PA/CAMILLA Supervising Physician PA/CAMILLA Supervising Physician: Dr. Gandhi
[2024-10-31 15:11] LABS: Collection Type, Urine Clean Catch
[2024-10-31 15:17] LABS: Basophils # (Auto) 0.0 Thou/mm3 (0.0-0.2); Basophils % (Auto) 0 % (0-2.5); Eosinophils # (Auto) 0.1 Thou/mm3 (0.0-0.5); Eosinophils % (Auto) 1 % (0-10); Hematocrit 45.5 % (41.0-53.0); Hemoglobin 15.7 g/dL (13.5-16.0); Immature Granulocytes Auto 0.01 Thou/mm3 (0.00-0.00); Lymphocytes # (Auto) 1.1 Thou/mm3 (1.0-4.8); Lymphocytes % (Auto) 15 % (10-50); Mean Corpuscular HGB Conc 34.5 g/dl (31.0-37.0); Mean Corpuscular Hemoglobin 30.0 pg (25.0-35.0); Mean Corpuscular Volume 87 fL (80-100); Monocytes # (Auto) 0.8 Thou/mm3 (0.0-0.8); Monocytes % (Auto) 11 % (0-12); Neutrophils # (Auto) 5.2 Thou/mm3 (1.8-7.7); Neutrophils % (Auto) 72 % (37-80); Nucleated Red Blood Cell # 0.00 Thou/mm3 (0.00-0.00); Nucleated Red Blood Cell % 0 /100 WBC (0); Platelet Count 213 Thou/mm3 (140-440); RDW Standard Deviation 40.2 fL (35.1-43.9); Red Blood Count 5.24 Miln/mm3 (4.50-5.90); White Blood Count 7.2 Thou/mm3 (3.8-10.6)
[2024-10-31 15:19] LABS: INR 1.0 (0.9-1.3); Partial Thromboplastin Time 28.2 Seconds (22.0-36.0); Prothrombin Time 11.4 Seconds (9.0-12.2)
[2024-10-31 15:21] LABS: Alanine Aminotransferase 68 U/L (10-49); Albumin, Serum 4.0 gm/dL (3.5-5.0); Albumin/Globulin Ratio 1.4 (1.2-2.2); Alkaline Phosphatase 64 U/L (46-116); Anion Gap 7 (7-16); Aspartate Amino Transferase 28 U/L (0-34); BUN/Creatinine Ratio 13 Ratio (12-20); Bilirubin,Total 1.0 mg/dL (0.3-1.2); Blood Urea Nitrogen 13 mg/dL (9-23); Calcium 9.2 mg/dL (8.3-10.6); Calcium (Corrected) 9.2 mg/dL (8.5-10.1); Carbon Dioxide 26.7 mMol/L (20.0-31.0); Chloride 109 mMol/L (98-107); Creatinine (Component) 1.0 mg/dL (0.6-1.3); Estimated Creatinine Clearance 86.5 mL/min (>60); Globulin 2.8 gm/dL (2.3-3.5); Glucose 110 mg/dL (74-106); Magnesium 1.6 mg/dL (1.6-2.6); Osmolality,Calculated 286 (275-295); Potassium 4.1 mMol/L (3.4-5.1); Sodium 143 mMol/L (136-145); Total Protein 6.8 gm/dL (5.7-8.2); Troponin I < 0.002 ng/mL (0.0-0.045); eGFR > 60 See Note
[2024-10-31 15:30] LABS: Bilirubin,Urine Negative (Negative); Blood,Urine Negative (Negative); Clarity,Urine Clear (Clear/Hazy); Color,Urine Yellow (Lt Yel-Yel); Glucose, Urine Negative (Negative); Ketones,Urine Negative (Negative); Leukocyte Esterase,Urine Positive (Negative); Nitrite,Urine Negative (Negative); PH,Urine 6.0 (5.0-7.0); Protein,Urine 1+ (Neg - Trace); RBC,Urine 3 /hpf (0-3); Specific Gravity,Urine 1.027 (1.001-1.035); Squamous Epithelial Cell,Urine < 1 /hpf (0-5); Urobilinogen,Urine Negative mg/dL (0.0-1.0); WBC,Urine 16 /hpf (0-5)
[2024-10-31 15:32] LABS: Amphetamine/Methamp Scrn,U Negative (Negative); Barbiturate Screen,Urine Negative (Negative); Benzodiazepines Screen,Urine Negative (Negative); Benzoylecgonine Screen, Ur Negative (Negative); Fentanyl Screen,Urine Negative (Negative); Opiate Screen,Urine Negative (Negative); THC Screen,Urine Negative (Negative)
[2024-10-31 16:42] LABS: B-Type Natriuretic Peptide 95 pg/mL (0-100)
== END 2024-10-31 17:02 | disposition home or self-care (01) ==
PROVIDERS: Nurse Practitioner Family; Emergency Provider Emergency Medicine; PCP Physician Assistant
DX: I48.91 Unspecified atrial fibrillation (principal); N39.0 Urinary tract infection, site not specified; E78.00 Pure hypercholesterolemia, unspecified; I10 Essential (primary) hypertension; Z79.01 Long term (current) use of anticoagulants
CPT/HCPCS: 36415; 80053; 80307; 81001; 83735; 83880; 84484; 85025; 85610; 85730; 93005; 99283

== ENCOUNTER → 2024-10-31 | Outpatient (BNVA) | payer OTHER, SELFPAY | END | disposition home or self-care (01) | PROVIDERS: PCP Physician Assistant; Referring Provider Physician Assistant; Visit Provider Urology | DX: N40.1 Benign prostatic hyperplasia with lower urinary tract symptoms (principal); I48.91 Unspecified atrial fibrillation; I10 Essential (primary) hypertension | CPT/HCPCS: 99212; G0463 ==

== ENCOUNTER → 2024-11-04 | Outpatient (CLI) | payer OTHER, SELFPAY ==
[2024-11-04 08:43] LABS: Basophils # (Auto) 0.0 Thou/mm3 (0.0-0.2); Basophils % (Auto) 1 % (0-2.5); Eosinophils # (Auto) 0.1 Thou/mm3 (0.0-0.5); Eosinophils % (Auto) 2 % (0-10); Hematocrit 45.7 % (41.0-53.0); Hemoglobin 15.6 g/dL (13.5-16.0); Immature Granulocytes Auto 0.01 Thou/mm3 (0.00-0.00); Lymphocytes # (Auto) 1.1 Thou/mm3 (1.0-4.8); Lymphocytes % (Auto) 19 % (10-50); Mean Corpuscular HGB Conc 34.1 g/dl (31.0-37.0); Mean Corpuscular Hemoglobin 30.2 pg (25.0-35.0); Mean Corpuscular Volume 88 fL (80-100); Monocytes # (Auto) 0.6 Thou/mm3 (0.0-0.8); Monocytes % (Auto) 9 % (0-12); Neutrophils # (Auto) 4.1 Thou/mm3 (1.8-7.7); Neutrophils % (Auto) 69 % (37-80); Nucleated Red Blood Cell # 0.00 Thou/mm3 (0.00-0.00); Nucleated Red Blood Cell % 0 /100 WBC (0); Platelet Count 204 Thou/mm3 (140-440); RDW Standard Deviation 41.7 fL (35.1-43.9); Red Blood Count 5.17 Miln/mm3 (4.50-5.90); White Blood Count 5.9 Thou/mm3 (3.8-10.6)
[2024-11-04 08:52] LABS: Glucose Estimated Average 111 mg/dL (80-131); Hemoglobin A1C 5.5 % Hgb (4.8-6.0)
[2024-11-04 09:02] LABS: Alanine Aminotransferase 72 U/L (10-49); Albumin, Serum 4.0 gm/dL (3.5-5.0); Albumin/Globulin Ratio 1.4 (1.2-2.2); Alkaline Phosphatase 61 U/L (46-116); Anion Gap 9 (7-16); Aspartate Amino Transferase 34 U/L (0-34); BUN/Creatinine Ratio 12 Ratio (12-20); Bilirubin,Total 1.4 mg/dL (0.3-1.2); Blood Urea Nitrogen 12 mg/dL (9-23); Calcium 9.2 mg/dL (8.3-10.6); Calcium (Corrected) 9.2 mg/dL (8.5-10.1); Carbon Dioxide 24.9 mMol/L (20.0-31.0); Cardiac Risk Estimate 2.8 RATIO (4.0-6.7); Chloride 107 mMol/L (98-107); Cholesterol 133 mg/dL (132-200); Creatinine (Component) 1.0 mg/dL (0.6-1.3); Globulin 2.8 gm/dL (2.3-3.5); Glucose 114 mg/dL (74-106); HDL Cholesterol 47 mg/dL (40-60); LDL Cholesterol,Calculated 70 mg/dL (0-130); Osmolality,Calculated 281 (275-295); Potassium 4.3 mMol/L (3.4-5.1); Sodium 141 mMol/L (136-145); Thyroid Stimulating Hormone 1.39 uIU/mL (0.55-4.78); Total Protein 6.8 gm/dL (5.7-8.2); Triglycerides 82 mg/dL (30-150); eGFR > 60 See Note
== END | disposition home or self-care (01) ==
PROVIDERS: PCP Physician Assistant; Referring Provider Physician Assistant; Visit Provider Physician Assistant
DX: I48.0 Paroxysmal atrial fibrillation (principal); I10 Essential (primary) hypertension; E78.5 Hyperlipidemia, unspecified; R73.03 Prediabetes
CPT/HCPCS: 36415; 80053; 80061; 83036; 84443; 85025

== ENCOUNTER → 2024-11-18 | Outpatient (BNVA) | payer OTHER, SELFPAY | END | disposition home or self-care (01) | PROVIDERS: PCP Urology; Referring Provider Urology; Visit Provider Urology | DX: N32.89 Other specified disorders of bladder (principal); D41.4 Neoplasm of uncertain behavior of bladder; N40.1 Benign prostatic hyperplasia with lower urinary tract symptoms; N13.8 Other obstructive and reflux uropathy; I10 Essential (primary) hypertension; I48.91 Unspecified atrial fibrillation; E78.00 Pure hypercholesterolemia, unspecified | CPT/HCPCS: 52000; 81003; 96372; A4217; A4649; C1894; J1580; A9270 ==

== ENCOUNTER → 2024-11-26 | Outpatient (CLI) | payer OTHER, SELFPAY ==
[2024-11-26 14:07] LABS: Collection Type, Urine Clean Catch; Squamous Epithelial Cell,Urine 0 /hpf (0-5)
[2024-11-26 14:25] LABS: Basophils # (Auto) 0.0 Thou/mm3 (0.0-0.2); Basophils % (Auto) 0 % (0-2.5); Eosinophils # (Auto) 0.1 Thou/mm3 (0.0-0.5); Eosinophils % (Auto) 1 % (0-10); Hematocrit 47.5 % (41.0-53.0); Hemoglobin 16.3 g/dL (13.5-16.0); Immature Granulocytes Auto 0.02 Thou/mm3 (0.00-0.00); Lymphocytes # (Auto) 1.5 Thou/mm3 (1.0-4.8); Lymphocytes % (Auto) 20 % (10-50); Mean Corpuscular HGB Conc 34.3 g/dl (31.0-37.0); Mean Corpuscular Hemoglobin 30.5 pg (25.0-35.0); Mean Corpuscular Volume 89 fL (80-100); Monocytes # (Auto) 0.4 Thou/mm3 (0.0-0.8); Monocytes % (Auto) 6 % (0-12); Neutrophils # (Auto) 5.3 Thou/mm3 (1.8-7.7); Neutrophils % (Auto) 72 % (37-80); Nucleated Red Blood Cell # 0.00 Thou/mm3 (0.00-0.00); Nucleated Red Blood Cell % 0 /100 WBC (0); Platelet Count 202 Thou/mm3 (140-440); RDW Standard Deviation 40.7 fL (35.1-43.9); Red Blood Count 5.35 Miln/mm3 (4.50-5.90); White Blood Count 7.3 Thou/mm3 (3.8-10.6)
[2024-11-26 14:37] LABS: INR 1.1 (0.9-1.3); Prothrombin Time 11.8 Seconds (9.0-12.2)
[2024-11-26 14:40] LABS: Bacteria,Urine Rare; Bilirubin,Urine Negative (Negative); Blood,Urine Negative (Negative); Clarity,Urine Clear (Clear/Hazy); Color,Urine Yellow (Lt Yel-Yel); Culture Indicated,Urine Not Indicated; Glucose, Urine Negative (Negative); Ketones,Urine Negative (Negative); Leukocyte Esterase,Urine Positive (Negative); Nitrite,Urine Negative (Negative); PH,Urine 5.5 (5.0-7.0); Protein,Urine Negative (Neg - Trace); RBC,Urine 3 /hpf (0-3); Specific Gravity,Urine 1.022 (1.001-1.035); Urobilinogen,Urine Negative mg/dL (0.0-1.0); WBC,Urine 5 /hpf (0-5)
[2024-11-26 14:50] LABS: Alanine Aminotransferase 71 U/L (10-49); Albumin, Serum 4.1 gm/dL (3.5-5.0); Albumin/Globulin Ratio 1.6 (1.2-2.2); Alkaline Phosphatase 62 U/L (46-116); Anion Gap 10 (7-16); Aspartate Amino Transferase 30 U/L (0-34); BUN/Creatinine Ratio 15 Ratio (12-20); Bilirubin,Total 1.4 mg/dL (0.3-1.2); Blood Urea Nitrogen 15 mg/dL (9-23); Calcium 9.2 mg/dL (8.3-10.6); Calcium (Corrected) 9.2 mg/dL (8.5-10.1); Carbon Dioxide 24.6 mMol/L (20.0-31.0); Chloride 105 mMol/L (98-107); Creatinine (Component) 1.0 mg/dL (0.6-1.3); Globulin 2.5 gm/dL (2.3-3.5); Glucose 148 mg/dL (74-106); Osmolality,Calculated 283 (275-295); Potassium 3.8 mMol/L (3.4-5.1); Sodium 140 mMol/L (136-145); Total Protein 6.6 gm/dL (5.7-8.2); eGFR > 60 See Note
== END | disposition home or self-care (01) ==
PROVIDERS: PCP Physician Assistant; Referring Provider Physician Assistant; Visit Provider Physician Assistant
DX: R42 Dizziness and giddiness (principal); I10 Essential (primary) hypertension; I48.0 Paroxysmal atrial fibrillation
CPT/HCPCS: 36415; 80053; 81001; 85025; 85610

== ENCOUNTER → 2024-12-24 | Outpatient (CLI) | payer OTHER, SELFPAY ==
[2024-12-24 13:00] LABS: Collection Type, Urine Clean Catch; Squamous Epithelial Cell,Urine 0 /hpf (0-5)
--- NOTE | 2024-12-24 13:22 | EKG_ITS ---
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
[2024-12-24 13:29] LABS: Basophils # (Auto) 0.0 Thou/mm3 (0.0-0.2); Basophils % (Auto) 1 % (0-2.5); Eosinophils # (Auto) 0.1 Thou/mm3 (0.0-0.5); Eosinophils % (Auto) 2 % (0-10); Hematocrit 51.2 % (41.0-53.0); Hemoglobin 17.1 g/dL (13.5-16.0); Immature Granulocytes Auto 0.04 Thou/mm3 (0.00-0.00); Lymphocytes # (Auto) 1.8 Thou/mm3 (1.0-4.8); Lymphocytes % (Auto) 28 % (10-50); Mean Corpuscular HGB Conc 33.4 g/dl (31.0-37.0); Mean Corpuscular Hemoglobin 29.7 pg (25.0-35.0); Mean Corpuscular Volume 89 fL (80-100); Monocytes # (Auto) 0.5 Thou/mm3 (0.0-0.8); Monocytes % (Auto) 9 % (0-12); Neutrophils # (Auto) 3.7 Thou/mm3 (1.8-7.7); Neutrophils % (Auto) 60 % (37-80); Nucleated Red Blood Cell # 0.00 Thou/mm3 (0.00-0.00); Nucleated Red Blood Cell % 0 /100 WBC (0); Platelet Count 232 Thou/mm3 (140-440); RDW Standard Deviation 40.5 fL (35.1-43.9); Red Blood Count 5.75 Miln/mm3 (4.50-5.90); White Blood Count 6.2 Thou/mm3 (3.8-10.6)
[2024-12-24 13:32] LABS: Bilirubin,Urine Negative (Negative); Blood,Urine Negative (Negative); Clarity,Urine Clear (Clear/Hazy); Color,Urine Yellow (Lt Yel-Yel); Glucose, Urine Negative (Negative); Ketones,Urine Negative (Negative); Leukocyte Esterase,Urine Positive (Negative); Nitrite,Urine Negative (Negative); PH,Urine 5.5 (5.0-7.0); Protein,Urine Negative (Neg - Trace); RBC,Urine 1 /hpf (0-3); Specific Gravity,Urine 1.020 (1.001-1.035); Urobilinogen,Urine Negative mg/dL (0.0-1.0); WBC,Urine 8 /hpf (0-5)
[2024-12-24 14:08] LABS: Alanine Aminotransferase 50 U/L (10-49); Albumin, Serum 4.2 gm/dL (3.5-5.0); Albumin/Globulin Ratio 1.7 (1.2-2.2); Alkaline Phosphatase 65 U/L (46-116); Anion Gap 11 (7-16); Aspartate Amino Transferase 26 U/L (0-34); BUN/Creatinine Ratio 22 Ratio (12-20); Bilirubin,Total 0.8 mg/dL (0.3-1.2); Blood Urea Nitrogen 20 mg/dL (9-23); Calcium 9.9 mg/dL (8.3-10.6); Calcium (Corrected) 9.9 mg/dL (8.5-10.1); Carbon Dioxide 25.5 mMol/L (20.0-31.0); Chloride 105 mMol/L (98-107); Creatinine (Component) 0.9 mg/dL (0.6-1.3); Globulin 2.5 gm/dL (2.3-3.5); Glucose 92 mg/dL (74-106); Osmolality,Calculated 283 (275-295); Potassium 5.0 mMol/L (3.4-5.1); Sodium 141 mMol/L (136-145); Total Protein 6.7 gm/dL (5.7-8.2); eGFR > 60 See Note
[2024-12-24 14:48] LABS: INR 1.0 (0.9-1.3); Partial Thromboplastin Time 27.8 Seconds (22.0-36.0); Prothrombin Time 11.2 Seconds (9.0-12.2)
== END | disposition home or self-care (01) ==
PROVIDERS: PCP Physician Assistant; Referring Provider Urology; Visit Provider Urology
DX: N40.0 Benign prostatic hyperplasia without lower urinary tract symptoms (principal); N32.0 Bladder-neck obstruction
CPT/HCPCS: 36415; 80053; 81001; 85025; 85610; 85730; 87086; 93005

== ENCOUNTER → 2025-01-15 | Outpatient (BNVA) | payer OTHER, SELFPAY | END | disposition home or self-care (01) | PROVIDERS: PCP Physician Assistant; Referring Provider Physician Assistant; Visit Provider Urology | DX: Z46.6 Encounter for fitting and adjustment of urinary device (principal); I10 Essential (primary) hypertension; E78.00 Pure hypercholesterolemia, unspecified; I48.91 Unspecified atrial fibrillation; E66.9 Obesity, unspecified; Z68.34 Body mass index [BMI] 34.0-34.9, adult; Z86.73 Personal history of transient ischemic attack (TIA), and cerebral infarction without residual deficits | CPT/HCPCS: 96372; 99212; J1580; G0463 ==

== ENCOUNTER → 2025-01-27 | Outpatient (CLI) | payer OTHER, SELFPAY ==
[2025-01-27 16:41] LABS: Basophils # (Auto) 0.1 Thou/mm3 (0.0-0.2); Basophils % (Auto) 1 % (0-2.5); Eosinophils # (Auto) 0.1 Thou/mm3 (0.0-0.5); Eosinophils % (Auto) 1 % (0-10); Hematocrit 40.0 % (41.0-53.0); Hemoglobin 13.5 g/dL (13.5-16.0); Immature Granulocytes Auto 0.04 Thou/mm3 (0.00-0.00); Lymphocytes # (Auto) 1.4 Thou/mm3 (1.0-4.8); Lymphocytes % (Auto) 14 % (10-50); Mean Corpuscular HGB Conc 33.8 g/dl (31.0-37.0); Mean Corpuscular Hemoglobin 29.7 pg (25.0-35.0); Mean Corpuscular Volume 88 fL (80-100); Monocytes # (Auto) 0.7 Thou/mm3 (0.0-0.8); Monocytes % (Auto) 7 % (0-12); Neutrophils # (Auto) 7.6 Thou/mm3 (1.8-7.7); Neutrophils % (Auto) 77 % (37-80); Nucleated Red Blood Cell # 0.00 Thou/mm3 (0.00-0.00); Nucleated Red Blood Cell % 0 /100 WBC (0); Platelet Count 323 Thou/mm3 (140-440); RDW Standard Deviation 40.5 fL (35.1-43.9); Red Blood Count 4.55 Miln/mm3 (4.50-5.90); White Blood Count 9.9 Thou/mm3 (3.8-10.6)
== END | disposition home or self-care (01) ==
LOC: COPL 15:11
PROVIDERS: PCP Physician Assistant; Referring Provider Internal Medicine Cardiovascular Disease; Visit Provider Internal Medicine Cardiovascular Disease
DX: I48.0 Paroxysmal atrial fibrillation (principal); R31.9 Hematuria, unspecified
CPT/HCPCS: 36415; 85025

== ENCOUNTER → 2025-01-30 | Outpatient (CLI) | payer OTHER, SELFPAY | END | disposition home or self-care (01) | LOC: SLDO 11:23 | PROVIDERS: Referring Provider Urology; Visit Provider Urology | DX: N39.0 Urinary tract infection, site not specified (principal) | CPT/HCPCS: 87077; 87086; 87186 ==

== ENCOUNTER 2025-02-23 09:51 | Outpatient (CLI) | payer OTHER, SELFPAY ==
[2025-02-19 16:14] VITALS: BMI 33.9
--- NOTE | 2025-02-20 13:02 | EKG_ITS ---
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
[2025-02-20 14:31] LABS: Basophils # (Auto) 0.1 Thou/mm3 (0.0-0.2); Basophils % (Auto) 1 % (0-2.5); Eosinophils # (Auto) 0.1 Thou/mm3 (0.0-0.5); Eosinophils % (Auto) 1 % (0-10); Hematocrit 42.2 % (41.0-53.0); Hemoglobin 13.9 g/dL (13.5-16.0); Immature Granulocytes Auto 0.02 Thou/mm3 (0.00-0.00); Lymphocytes # (Auto) 1.3 Thou/mm3 (1.0-4.8); Lymphocytes % (Auto) 21 % (10-50); Mean Corpuscular HGB Conc 32.9 g/dl (31.0-37.0); Mean Corpuscular Hemoglobin 28.7 pg (25.0-35.0); Mean Corpuscular Volume 87 fL (80-100); Monocytes # (Auto) 0.7 Thou/mm3 (0.0-0.8); Monocytes % (Auto) 12 % (0-12); Neutrophils # (Auto) 4.2 Thou/mm3 (1.8-7.7); Neutrophils % (Auto) 65 % (37-80); Nucleated Red Blood Cell # 0.00 Thou/mm3 (0.00-0.00); Nucleated Red Blood Cell % 0 /100 WBC (0); Platelet Count 257 Thou/mm3 (140-440); RDW Standard Deviation 40.5 fL (35.1-43.9); Red Blood Count 4.85 Miln/mm3 (4.50-5.90); White Blood Count 6.4 Thou/mm3 (3.8-10.6)
[2025-02-20 14:38] LABS: INR 1.0 (0.9-1.3); Partial Thromboplastin Time 29.5 Seconds (22.0-36.0); Prothrombin Time 11.0 Seconds (9.0-12.2)
[2025-02-20 14:39] LABS: Anion Gap 7 (7-16); BUN/Creatinine Ratio 16 Ratio (12-20); Blood Urea Nitrogen 14 mg/dL (9-23); Calcium 9.2 mg/dL (8.3-10.6); Carbon Dioxide 25.1 mMol/L (20.0-31.0); Chloride 108 mMol/L (98-107); Creatinine (Component) 0.9 mg/dL (0.6-1.3); Estimated Creatinine Clearance 95.5 mL/min (>60); Glucose 103 mg/dL (74-106); Osmolality,Calculated 279 (275-295); Potassium 4.3 mMol/L (3.4-5.1); Sodium 140 mMol/L (136-145); eGFR > 60 See Note
[2025-02-23] VITALS (10 sets, daily range): BP systolic 120–142; BP diastolic 76–99; PULSE 62–101; RESP 11–18; TEMP 36.1–36.9; O2SAT 95–99
--- NOTE | 2025-02-23 11:30 | ECHO_ITS ---
Patient Info Name: Boyd Campbell Age: 59 years : 1965 Gender: Male Ht: 167 cm Wt: 95 kg BSA: 2.14 m2 BP: 139 / 99 mmHg HR: 96 bpm Heart Rhythm: Atrial Fibrillation Exam Date: 02/23/2025 11:53 AM Admit Date: 02/23/2025 Site: [facility] Room Number: Binder And Wrapper Packer Patient Status: O Technical Quality: Fair Exam Type: CA echo transesophageal Bartenders: Carmen Vargas Ordering Physician: Walt Phelps Referring Physician: Walt Phelps Study Info Indications Afib - Primary Location: [facility] Left Ventricle Left ventricular chamber dimension is normal. Left ventricular systolic function is normal with visually estimated ejection fraction of 55-60%. Mitral Valve There is mild mitral valve regurgitation. Tricuspid Valve There is trace tricuspid valve regurgitation. Pericardium/Pleural There is no pericardial effusion. Summary 1. Indication: A-fib. 2. No evidence of PFO/ ASD or LA/ LUZMA thrombus. 3. Normal LV size and function. Estimated EF 60-65%. 4. Normal RV size and function. 5. Mild MR, TR. Trace PI. Report Signatures Finalized by Walt Phelps on 02/24/2025 01:17 AM
[2025-02-23] MEDS: BENZOCAINE 20% (Hurricaine) SPRAY 1 DOSE TOP (12:07)
[2025-02-23] MEDS: MIDAZOLAM INJ 1 MG/ML VIAL 2 ML 6 MG IVP (12:08)
[2025-02-23] MEDS: fentaNYL CIT INJ 50 mCg/ML AMP 2ML 125 MCG IVP (12:08)
--- NOTE | 2025-02-23 12:24 | EKG_ITS ---
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
--- NOTE | 2025-02-23 14:04 | PD.CARDOPNOT ---
Procedure Direct current cardioversion for uncontrolled atrial fibrillation Moderate Conscious Sedation with Versed and Fentanyl Date of Procedure 02/23/25 Pre Op Diagnosis Atrial Fibrillation Indication Atrial Fibrillation Post Op Diagnosis Normal Sinus Rhythm restored. Procedure Description Patient was in atrial fibrillation and ventricular rate was controlled came in for elective cardioversion as patient was having significant symptoms for the Afib. Decision was made to perform cardioversion for the patient after performing a transesophageal echocardiogram. Transesophageal echocardiogram was completed today and did not show any significant LA or LUZMA thrombus.? Please see ERIKA report from today for rest of the findings.? Patient was already on anticoagulation with eliquis.. Patient was taken to the prosthetic lab technician for the ERIKA and cardioversion, both anterior and posterior pads were placed.? Patient was given moderate sedation and received a total of 6 mg of Versed and 125 mcg of fentanyl prior to the procedure to provide him enough for sedation. A biphasic defibrillator was used.? A single 120 J synchronized shock was given and the patient converted successfully into normal sinus rhythm.? No complications during or after the procedure.? Patient is doing well.? His heart rate was stable between 50 to 70 bpm and appears to be normal sinus rhythm on the telemetry.? Recommend to perform an EKG to document normal sinus rhythm postprocedure.? Patient will be monitored in the prosthetic lab technician for the next 1-2 hours and will be discharged home if hemodynamically stable. Will adjust his medications for atrial fibrillation as outpatient. Estimated Blood Loss 0 Specimen(s) Specimen(s): None Conclusion Successful direct current cardioversion of Atrial Fibrillation to Normal Sinus Rhythm Recommendation Continue metoprolol XL 100 mg BID if BP stable and will adjust medications in the office as outpatient. Continue Eliquis 5 mg BID for anticaogulation. EKG to document NSR post procedure. No driving for 24 hours. Patient recommended to follow up in 1 week in the clinic. Surgical Staff Surgeon: Walt Phelps MD
--- NOTE | 2025-02-23 17:13 | PC.NURSE ---
1323 patient is sleepy and arousable, breathing unlabored, s/p ERIKA and cardioversion by Dr. Phelps, report received from Stephanie barber 1323 patient is awake, alert, breathing unlabored, able to drink water and eat jello with no nausea or vomiting, meets discharge criteria, discharge instructions given to patient and , patient discharged home in wheelchair with all belongings.
== END 2025-02-23 13:23 | disposition home or self-care (01) ==
PROVIDERS: PCP Internal Medicine; Referring Provider Internal Medicine Cardiovascular Disease; Visit Provider Internal Medicine Cardiovascular Disease
PROC: (CPT 93312; principal; 2025-02-23 11:30)
DX: I48.0 Paroxysmal atrial fibrillation (principal); I10 Essential (primary) hypertension; E78.5 Hyperlipidemia, unspecified; F32.A Depression, unspecified; Z82.3 Family history of stroke; E66.9 Obesity, unspecified; N40.0 Benign prostatic hyperplasia without lower urinary tract symptoms; Z86.73 Personal history of transient ischemic attack (TIA), and cerebral infarction without residual deficits; R31.9 Hematuria, unspecified; Z01.810 Encounter for preprocedural cardiovascular examination
CPT/HCPCS: 92960; 36415; 80048; 85025; 85610; 85730; 93005; 93312; 99152; J2250; J3010; A9270

== ENCOUNTER → 2025-03-11 | Outpatient (CLI) | payer OTHER, SELFPAY ==
[2025-03-11 11:32] LABS: Collection Type, Urine Clean Catch
[2025-03-11 12:52] LABS: Bilirubin,Urine Negative (Negative); Blood,Urine Negative (Negative); Clarity,Urine Clear (Clear/Hazy); Color,Urine Colorless (Lt Yel-Yel); Glucose, Urine Negative (Negative); Ketones,Urine Negative (Negative); Leukocyte Esterase,Urine Positive (Negative); Nitrite,Urine Negative (Negative); PH,Urine 6.5 (5.0-7.0); Protein,Urine Negative (Neg - Trace); RBC,Urine 1 /hpf (0-3); Specific Gravity,Urine 1.005 (1.001-1.035); Squamous Epithelial Cell,Urine < 1 /hpf (0-5); Urobilinogen,Urine Negative mg/dL (0.0-1.0); WBC,Urine 16 /hpf (0-5)
[2025-03-11 12:58] LABS: Culture Indicated,Urine Yes
== END | disposition home or self-care (01) ==
LOC: SLDO 11:27
PROVIDERS: PCP Urology; Referring Provider Urology; Visit Provider Urology
DX: N39.0 Urinary tract infection, site not specified (principal)
CPT/HCPCS: 81001; 87086

== ENCOUNTER → 2025-03-30 | Outpatient (CLI) | payer OTHER, SELFPAY ==
--- NOTE | 2025-03-30 | XR_ITS ---
Examination: Knee, left, 3 views Technique: Knee AP, lateral, oblique 3 views Date and time of exam: 2024, 1336 hours INDICATIONS: Left knee pain 3 months. FINDINGS: Mild to moderate tricompartment osteoarthritis No fracture or dislocation No foreign body IMPRESSION: Mild to moderate tricompartment osteoarthritis
== END | disposition home or self-care (01) ==
LOC: CDIM 12:25
PROVIDERS: PCP Physician Assistant; Referring Provider Physician Assistant; Visit Provider Physician Assistant
DX: M17.12 Unilateral primary osteoarthritis, left knee (principal)
CPT/HCPCS: 73562

== ENCOUNTER → 2025-03-31 | Outpatient (CLI) | payer OTHER, SELFPAY ==
[2025-03-31 08:26] LABS: Basophils # (Auto) 0.1 Thou/mm3 (0.0-0.2); Basophils % (Auto) 1 % (0-2.5); Eosinophils # (Auto) 0.1 Thou/mm3 (0.0-0.5); Eosinophils % (Auto) 3 % (0-10); Hematocrit 47.2 % (41.0-53.0); Hemoglobin 15.5 g/dL (13.5-16.0); Immature Granulocytes Auto 0.02 Thou/mm3 (0.00-0.00); Lymphocytes # (Auto) 1.3 Thou/mm3 (1.0-4.8); Lymphocytes % (Auto) 23 % (10-50); Mean Corpuscular HGB Conc 32.8 g/dl (31.0-37.0); Mean Corpuscular Hemoglobin 28.3 pg (25.0-35.0); Mean Corpuscular Volume 86 fL (80-100); Monocytes # (Auto) 0.6 Thou/mm3 (0.0-0.8); Monocytes % (Auto) 11 % (0-12); Neutrophils # (Auto) 3.3 Thou/mm3 (1.8-7.7); Neutrophils % (Auto) 61 % (37-80); Nucleated Red Blood Cell # 0.00 Thou/mm3 (0.00-0.00); Nucleated Red Blood Cell % 0 /100 WBC (0); Platelet Count 216 Thou/mm3 (140-440); RDW Standard Deviation 41.3 fL (35.1-43.9); Red Blood Count 5.47 Miln/mm3 (4.50-5.90); White Blood Count 5.4 Thou/mm3 (3.8-10.6)
[2025-03-31 08:37] LABS: Glucose Estimated Average 117 mg/dL (80-131); Hemoglobin A1C 5.7 % Hgb (4.8-6.0)
[2025-03-31 08:40] LABS: Creatinine MALB Rnd Ur 79 mg/dL (30-125); Microalbumin Creat Ratio 42 mg/gCrea (<30); Microalbumin, Random Urine 33 mg/L (0-300)
[2025-03-31 08:57] LABS: Alanine Aminotransferase 76 U/L (10-49); Albumin, Serum 4.2 gm/dL (3.5-5.0); Albumin/Globulin Ratio 1.4 (1.2-2.2); Alkaline Phosphatase 64 U/L (46-116); Anion Gap 8 (7-16); Aspartate Amino Transferase 46 U/L (0-34); BUN/Creatinine Ratio 10 Ratio (12-20); Bilirubin,Total 0.7 mg/dL (0.3-1.2); Blood Urea Nitrogen 9 mg/dL (9-23); Calcium 9.4 mg/dL (8.3-10.6); Calcium (Corrected) 9.4 mg/dL (8.5-10.1); Carbon Dioxide 28.2 mMol/L (20.0-31.0); Cardiac Risk Estimate 2.4 RATIO (4.0-6.7); Chloride 105 mMol/L (98-107); Cholesterol 118 mg/dL (132-200); Creatinine (Component) 0.9 mg/dL (0.6-1.3); Free T4 (Free Thyroxine) 1.34 ng/dL (0.89-1.76); Globulin 2.9 gm/dL (2.3-3.5); Glucose 114 mg/dL (74-106); HDL Cholesterol 49 mg/dL (40-60); LDL Cholesterol,Calculated 59 mg/dL (0-130); Osmolality,Calculated 280 (275-295); Potassium 4.6 mMol/L (3.4-5.1); Sodium 141 mMol/L (136-145); Thyroid Stimulating Hormone 1.57 uIU/mL (0.55-4.78); Total Protein 7.1 gm/dL (5.7-8.2); Triglycerides 50 mg/dL (30-150); eGFR > 60 See Note
== END | disposition home or self-care (01) ==
LOC: COPL 07:34
PROVIDERS: PCP Physician Assistant; Referring Provider Physician Assistant; Visit Provider Physician Assistant
DX: R73.03 Prediabetes (principal); E78.5 Hyperlipidemia, unspecified; I10 Essential (primary) hypertension
CPT/HCPCS: 36415; 80053; 80061; 82043; 82570; 83036; 84439; 84443; 85025